=== PATIENT | female | born 1960 | race Caucasian/White ===

== ENCOUNTER 2023-04-15 10:22 | Day surgery (SDC) | payer OTHER ==
--- NOTE | 2023-04-15 08:55 | P.GSHP ---
History of Present Illness H&P Date: 04/15/23 CHIEF COMPLAINT: GERD HISTORY OF PRESENT ILLNESS: The patient is a 62-year-old female who presents reports gastroesophageal reflux disease. Upper endoscopy was offered for further evaluation and management. PAST MEDICAL HISTORY: Please see list. PAST SURGICAL HISTORY: Please see list. MEDICATIONS: Please see list. ALLERGIES: Please see list. SOCIAL HISTORY: No illicit drug use FAMILY HISTORY: No reports of Crohn disease or ulcerative colitis. REVIEW OF ORGAN SYSTEMS: CONSTITUTIONAL: No reports of fevers or chills. GI: Denies any blood in stools or constipation. PHYSICAL EXAM: VITAL SIGNS: Stable GENERAL: Well-developed and pleasant in no acute distress. HEENT: No scleral icterus. Extraocular movements grossly intact. Moist buccal mucosa. NECK: Supple without lymphadenopathy. CHEST: Unlabored respirations. Equal bilateral excursions. CARDIOVASCULAR: Regular rate and rhythm. Distal 2+ pulses. ABDOMEN: Soft, nondistended. MUSCULOSKELETAL: No clubbing, cyanosis, or edema. ASSESSMENT: 1. Gastroesophageal reflux disease PLAN: 1. Recommend proceeding with an upper endoscopy Past Medical History Past Medical History: Cancer, GERD/Reflux, Hyperlipidemia, Thyroid Disorder Additional Past Medical History / Comment(s): seasonal allergy. upper abdominal discomfort, pressure. melanomal removed, general aches and pains. History of Any Multi-Drug Resistant Organisms: None Reported Past Surgical History: Section Additional Past Surgical History / Comment(s): colonoscopy, removal of cyst on foot. spinal with c section, Past Anesthesia/Blood Transfusion Reactions: No Reported Reaction Smoking Status: Current every day smoker - Past Family History Mother Family Medical History: Cancer Additional Family Medical History / Comment(s): brain and lung cancer, Father History Unknown: Yes Daughter(s) Family Medical History: Fibromyalgia Additional Family Medical History / Comment(s): endometreosis, eczema. psoriasis, bulging discs Medications and Allergies Home Medications Medication Instructions Recorded Confirmed Type Acetaminophen Tab [Tylenol] 325 mg PO Q4H PRN 04/14/23 04/14/23 History Albuterol Sulfate [Ventolin HFA] 1 puff INHALATION DIRECTED PRN 04/14/23 04/14/23 History Ascorbic Acid [Vitamin C] 1,000 mg PO DAILY 04/14/23 04/14/23 History Atorvastatin [Lipitor] 20 mg PO HS 04/14/23 04/14/23 History Cholecalciferol [Vitamin D3 (25 25 mcg PO DAILY 04/14/23 04/14/23 History Mcg = 1000 Iu)] Levothyroxine Sodium 88 mcg PO DAILY 04/14/23 04/14/23 History Omeprazole 20 mg PO DAILY 04/14/23 04/14/23 History Otc Allergy Medicine 1 tab PO DAILY PRN 04/14/23 04/14/23 History Sertraline [Zoloft] 25 mg PO HS 04/14/23 04/14/23 History Unk Flonase 1 spray NASAL DIRECTED PRN 04/14/23 04/14/23 History Unk Motrin 1 tab PO DIRECTED PRN 04/14/23 04/14/23 History Allergies Allergy/AdvReac Type Severity Reaction Status Date / Time No Known Allergies Allergy Verified 04/14/23 09:29
[~2023-04-15 10:22] MED LIST: LACTATED RINGERS 1,000 ML IV SCH; LIDOCAINE 1% (10MG/ML) FOR IV START INTRADERMA PRN
[2023-04-15] MEDS ORDERED: LACTATED RINGERS 1,000 ML IV ONE (10:40)
[2023-04-15 11:02] VITALS: TEMP 97.9
[2023-04-15] MEDS ORDERED: PROPOFOL 10 MG/ML 20 ML VIAL IV ONE (11:16)
[2023-04-15 11:36] VITALS: RESP 18
--- NOTE | 2023-04-15 11:42 | P.PCN ---
Date of Procedure: 04/15/23 Description of Procedure: PREOPERATIVE DIAGNOSIS: Gastroesophageal reflux disease. Tobacco abuse disorder Epigastric abdominal pain Right upper quadrant abdominal pain POSTOPERATIVE DIAGNOSIS: Gastroesophageal reflux disease. Tobacco abuse disorder Epigastric abdominal pain Right upper quadrant abdominal pain Diaphragmatic hiatal hernia OPERATION: Esophagogastroduodenoscopy with biopsies along antrum and duodenum SURGEON: Snoi Jang MD ANESTHESIA: MAC. INDICATIONS: The patient is a 62-year-old female who presents with reflux disease. Benefits and risks of the procedure were described. Informed consent was obtained. DESCRIPTION: The patient was brought into the endoscopy suite and laid in the left lateral decubitus position. An Olympus gastroscope was passed along the posterior oropharynx down to the distal esophagus where the squamocolumnar junction was encountered at 35 cm from the incisors. The stomach was entered and no bile reflux was found. Additional findings are listed below. Biopsies with cold forceps were obtained of the antrum. The first through third portion of the duodenum was examined. Retroflexion of the scope confirmed Hill grade 3 lower esophageal valve. The squamocolumnar junction demonstrated LA grade B erosive esophagitis. The stomach was desufflated. The patient tolerated the procedure well. FINDINGS: Squamocolumnar junction 35 cm from the incisors. Diaphragmatic hiatus at 40 cm. Hiatal hernia, 5 cm Hill grade 3 lower esophageal valve. LA grade B erosive esophagitis. Biopsies obtained of duodenum Chronic gastritis with biopsies obtained RECOMMENDATIONS: Upper endoscopy as needed. Tobacco cessation and counseling May benefit from hiatal hernia repair Plan - Discharge Summary Discharge Rx Participant: No New Discharge Prescriptions: Continue Sertraline [Zoloft] 25 mg PO HS Acetaminophen Tab [Tylenol] 325 mg PO Q4H PRN PRN Reason: Pain Omeprazole 20 mg PO DAILY Unk Flonase 1 spray NASAL DIRECTED PRN PRN Reason: Allergy Symptoms Otc Allergy Medicine 1 tab PO DAILY PRN PRN Reason: Allergy Symptoms Atorvastatin [Lipitor] 20 mg PO HS Levothyroxine Sodium 88 mcg PO DAILY Ascorbic Acid [Vitamin C] 1,000 mg PO DAILY Cholecalciferol [Vitamin D3 (25 Mcg = 1000 Iu)] 25 mcg PO DAILY Albuterol Sulfate [Ventolin HFA] 1 puff INHALATION DIRECTED PRN PRN Reason: Allergy Symptoms Unk Motrin 1 tab PO DIRECTED PRN PRN Reason: Pain Discharge Medication List Acetaminophen Tab [Tylenol] 325 mg PO Q4H PRN 04/14/23 [History] Albuterol Sulfate [Ventolin HFA] 1 puff INHALATION DIRECTED PRN 04/14/23 [History] Ascorbic Acid [Vitamin C] 1,000 mg PO DAILY 04/14/23 [History] Atorvastatin [Lipitor] 20 mg PO HS 04/14/23 [History] Cholecalciferol [Vitamin D3 (25 Mcg = 1000 Iu)] 25 mcg PO DAILY 04/14/23 [History] Levothyroxine Sodium 88 mcg PO DAILY 04/14/23 [History] Omeprazole 20 mg PO DAILY 04/14/23 [History] Otc Allergy Medicine 1 tab PO DAILY PRN 04/14/23 [History] Sertraline [Zoloft] 25 mg PO HS 04/14/23 [History] Unk Flonase 1 spray NASAL DIRECTED PRN 04/14/23 [History] Unk Motrin 1 tab PO DIRECTED PRN 04/14/23 [History] Follow up Appointment(s)/Referral(s): Soni Jang MD [STAFF PHYSICIAN] - 05/05/23 1:15 pm Patient Instructions/Handouts: Hiatal Hernia (DC), How to Stop Smoking (DC) Discharge Disposition: HOME SELF-CARE
[2023-04-15 11:49] VITALS: BP 128/77; PULSE 64
== END 2023-04-15 12:18 | disposition home or self-care (01) ==
LOC: ORWHC2ENDO 10:22
PROVIDERS: ATTEND Surgery Plastic and Reconstructive Surgery
DX: K29.50 Unspecified chronic gastritis without bleeding (principal); K25.9 Gastric ulcer, unspecified as acute or chronic, without hemorrhage or perforation; K44.9 Diaphragmatic hernia without obstruction or gangrene; K21.00 Gastro-esophageal reflux disease with esophagitis, without bleeding; E78.5 Hyperlipidemia, unspecified; F17.210 Nicotine dependence, cigarettes, uncomplicated; F41.9 Anxiety disorder, unspecified; F32.A Depression, unspecified; E03.9 Hypothyroidism, unspecified; Z80.1 Family history of malignant neoplasm of trachea, bronchus and lung; Z98.891 History of uterine scar from previous surgery; Z79.899 Other long term (current) drug therapy; Z79.890 Hormone replacement therapy
CPT/HCPCS: 43239; J2704; 88305